=== PATIENT | female | born 1940 | race Hispanic/Latino ===

== ENCOUNTER 2016-07-10 20:16 | Emergency (ER) | payer OTHER, MEDICARE ==
[~2016-07-10] VITALS: Ht 160 cm; Wt 95.3 kg
[~2016-07-10 20:16] MED LIST: ADVAIR DISKUS 21 DSK PO; ALBUTEROL 3 ML3 ML INH; AMITIZA24 MCG PO; CLARITIN10 MG PO; COMBIVENT1 ARO INH; JANUVIA 100MG100 MG PO; LEVOTHYROXINE0.1 M1 PO; LINZESS145 MCG PO; METFORMIN HYD1000 M1 PO; METOPROLOL TART50 MG PO; MOBIC15 MG PO; NORVASC 5MG TAB5 MG PO; PANTOPRAZOLE SO40 MG PO; PRAVASTATIN SOD40 MG PO; PROVENTIL0.09 MG/A1 PO; SINGULAIR10 MG PO
--- NOTE | 2016-07-10 20:39 | ED AMS/SEIZURE/WEAK/DIZZY ---
History of Present Illness General Chief Complaint: General Adult Stated Complaint: PT STATES HAVING PAIN FROM WAIST DOWN, NO INJURY Source: patient, family Exam Limitations: no limitations Vital Signs & Intake/Output Vital Signs & Intake/Output Vital Signs Date Time Temp Pulse Resp B/P Pulse O2 O2 Flow FiO2 Ox Delivery Rate 07/10 2207 66 147/72 07/10 2207 67 149/67 07/10 2207 64 163/73 07/10 2111 98 Room Air 07/10 2028 99.3 74 20 174/99 97 Room Air Allergies Coded Allergies: Gadolinium-Containing Contrast Medi (UNKNOWN 11/09/15) Iodinated Contrast Media - Oral and (IODINATED CONTRAST MEDIA - IV DYE) (UNKNOWN 11/09/15) Penicillins (UNKNOWN 11/09/15) Sulfa (Sulfonamide Antibiotics) (UNKNOWN 11/09/15) fish derived (UNKNOWN 11/09/15) shellfish derived (UNKNOWN 11/09/15) Reconcile Medications Albuterol Sulfate (Proventil Hfa) 90 MCG HFA.AER.AD BREATHING PROBLEMS ( Reported) Albuterol Sulfate (Proventil) 2.5 MG/3 ML NEB 3 ML INH Q4P PRN SHORTNESS OF BREATH Amlodipine (Norvasc 5MG Tab) 5 MG TABLET 1 TAB PO DAILY HEART (Reported) Cyclobenzaprine HCl 10 MG TABLET 1 TAB PO 4 TIMES/DAY PRN MUSCLE SPASM FLUTICASONE/SALMETEROL (Advair 250-50 Diskus) 250 MCG-50 MCG/DOSE BLST.W.DEV BREATHING PROBLEMS (Reported) IPRATROPIUM/ALBUTEROL SULFATE (Combivent Inhaler) 14.7 GM AER.W.ADAP 2 PUF INH 4 TIMES/DAY ASTHMA Levothyroxine Sodium 0.1 MG TAB 0.1 MG PO DAILY AC THYROID (Reported) Linaclotide (Linzess) 145 MCG CAPSULE 1 TAB PO BID CONSTIPATION (Reported) Loratadine (Claritin) 10 MG TAB 1 TAB PO DAILY ALLERGIES (Reported) Lubiprostone (Amitiza) 24 MCG CAPSULE 1 CAP PO BID IBS (Reported) Meloxicam (Mobic) 15 MG TAB 1 TAB PO DAILY INFLAMMATION METFORMIN HCL (Metformin HCl ER) 1,000 MG TAB.ER.24 1 TAB PO DAILY DIABETES ( Reported) Metoprolol Tartrate 50 MG TABLET 1 TAB PO BID BP (Reported) Montelukast Sodium (Singulair) 10 MG TABLET 1 TAB PO DAILY ALLERGIES ( Reported) Pantoprazole Sodium 40 MG TABLET.DR 1 TAB PO DAILY GI (Reported) Polyethylene Glycol 3350 (Miralax) 17 GRAM/DOSE POWDER 17 GM PO BID CONSTIPATION mix with water, juice, soda, coffee or tea Pravastatin Sodium 40 MG TABLET 40 MG PO AT BEDTIME CHOLESTEROL (Reported) Sitagliptin Phosphate (Januvia) 100 MG TABLET 1 TAB PO DAILY DIABETES ( Reported) Triage Note: PT TO TRIAGE WITH C/O FEVER, EPIGASTRIC PAIN, NAUSEA, LOWER BACK PAIN RADIATING TO BILAT LOWER EXTREMITIES, WEAKNESS SINCE MONDAY. PT DENIES V/D, DENIES CHEST PAIN, DENIES SOB. VSS. PT AFEBRILE IN TRIAGE. PT TO [facility] FOR EKG BY WHEELCHAIR. Triage Nurses Notes Reviewed? yes Onset: Gradual Duration: day(s): Timing: recent history Injury Environment: home Severity: moderate Modifying Factors: Improves With: rest. Worsens With: movement. Associated Symptoms: lower back pain, bilaterally leg pain HPI: 75 yo woman h/o diabetes, hypertension, presents with lower back pain, radiating down both legs, abdominal pain, and occasional dizziness since monday evening. She confers no trauma, dysuria, diarrhea, nausea, vomiting. She notes no fever, chills, chest pain. Past History Travel History Traveled to [place] past 21 day No Medical History Any Pertinent Medical History? see below for history Cardiovascular: hypertension Respiratory: COPD Gastrointestinal: GERD Endocrine: diabetes, hypothyroidism Surgical History Surgical History: non-contributory Psychosocial History What is your primary language Arabic Tobacco Use: Never used Family History Hx Contributory? No Review of Systems Review of Systems Constitutional: Reports: no symptoms. EENTM: Reports: no symptoms. Respiratory: Reports: no symptoms. Cardiovascular: Reports: no symptoms. GI: Reports: no symptoms. Genitourinary: Reports: no symptoms. Musculoskeletal: Reports: no symptoms. Skin: Reports: no symptoms. Neurological/Psychological: Reports: no symptoms. Hematologic/Endocrine: Reports: no symptoms. Immunologic/Allergic: Reports: no symptoms. All Other Systems: Reviewed and Negative Physical Exam Physical Exam General Appearance: well developed/nourished, mild distress, moderate distress Head: atraumatic, normal appearance Eyes: Bilateral: normal appearance, PERRL, EOMI. Ears, Nose, Throat: normal pharynx Neck: normal inspection, supple, full range of motion Respiratory: normal breath sounds, chest non-tender, no respiratory distress, quiet respiration, lungs clear Cardiovascular: regular rate/rhythm Gastrointestinal: normal bowel sounds, soft, non-tender, no organomegaly Back: normal inspection, muscle spasm, no vertebral tenderness Extremities: normal range of motion Neurologic/Psych: no motor/sensory deficits, awake, alert, oriented x 3 Reflexes: 1+: bicep (R), bicep (L), knee (R), knee (L). Skin: intact, normal color, warm/dry Core Measures ACS in differential dx? No CVA/TIA Diagnosis: No Severe Sepsis Present: No Septic Shock Present: No Progress Differential Diagnosis: back pain vs skeletal issues vs abdominal issues. Plan of Care: Orders Procedure Date/time Status LIPASE 07/10 2039 Complete HEPATIC FUNCTION PANEL 07/10 2039 Complete CBC WITHOUT DIFFERENTIAL 07/10 2039 Complete BASIC METABOLIC PANEL 07/10 2039 Complete AMYLASE 07/10 2039 Complete EKG 07/10 2033 Active Laboratory Tests 07/10/162104: Anion Gap 14, Estimated GFR > 60, BUN/Creatinine Ratio 18.6, Glucose 117 H, Calcium 9.4, Total Bilirubin 0.6, Direct Bilirubin 0.5 H, AST 47 H, ALT 46, Alkaline Phosphatase 56, Total Protein 8.0, Albumin 4.4, Amylase 63, Lipase 148, CBC w Diff NO MAN DIFF REQ, RBC 4.74, MCV 89.5, MCH 29.6, RDW 14.1, MPV 8.4, Gran % 72.9, Lymphocytes % 19.0 L, Monocytes % 7.0, Eosinophils % 0.9, Basophils % 0.2, Absolute Granulocytes 6.9 H, Absolute Lymphocytes 1.8, Absolute Monocytes 0.7 H, Absolute Eosinophils 0.1, Absolute Basophils 0, PUBS MCHC 33.0 Diagnostic Imaging: Viewed by Me: Radiology Read, CT Scan. Discussed w/RAD: Radiology Read, CT Scan. Radiology Impression: abd/pelvic.... fecal impaction... no acute dz... full report below. , thoraco lumbar spine.... djd, no acute fx. CXR Impression: right atelectasis Initial ED EKG: normal axis, normal intervals, normal p-waves, normal QRS complex, normal sinus rhythm Comments: PATIENT: MARION VICTOR PRESENT AGE: 75 PATIENT ACCOUNT NO: [id number] : 40 LOCATION: [facility] ORDERING PHYSICIAN: LESLIE ARSHAD MD SERVICE DATE: 07/10/16 EXAM TYPE: RAD - XRY-THORACOLUMBAR SPINE EXAMINATION: XR THORACOLUMBAR SPINE CLINICAL INFORMATION: Pain COMPARISON: Chest radiograph 07/10/2016. Abdominal CT 07/10/2016. TECHNIQUE: Four views of the thoracolumbar spine FINDINGS: No evidence of acute fracture or subluxation. Vertebral body and posterior element alignment is normal. Vertebral body heights are maintained above the thoracic and lumbar spine. There is no significant disc space narrowing. Small multilevel endplate osteophyte formation, most prominent at the lower lumbar spine. The sacroiliac joints are intact. The sacrum appears intact. The bowel gas pattern is unremarkable. The visualized lungs are clear. IMPRESSION: Mild degenerative changes of the thoracolumbar spine. DICTATED BY: ARMANI CUI MD DATE/TIME DICTATED:07/10/162234 BENCH ASSEMBLER OPERATOR:GO DATE/TIME TRANSCRIBED:07/10/162234 CONFIDENTIAL, DO NOT COPY WITHOUT APPROPRIATE AUTHORIZATION. <Electronically signed in Other Vendor System> SIGNED BY: ARMANI CUI MD 07/10 PATIENT: MARION VICTOR PRESENT AGE: 75 PATIENT ACCOUNT NO: [id number] : 40 LOCATION: [facility] ORDERING PHYSICIAN: LESLIE ARSHAD MD SERVICE DATE: 07/10/16 EXAM TYPE: RAD - XRY-PORTABLE CHEST XRAY EXAMINATION: XR PORTABLE CHEST CLINICAL INFORMATION: Pain COMPARISON: 12/20/2013 TECHNIQUE: Portable supine radiograph. Lordotic positioning. FINDINGS: Aside from minor linear scarring or atelectasis at the medial right base the lungs are clear. No effusion or pneumothorax. No edema. Normal heart and mediastinum. IMPRESSION: Minor linear scarring or atelectasis at the medial right base. DICTATED BY: MARVEL WELDON MD DATE/TIME DICTATED:07/10/162222 BENCH ASSEMBLER OPERATOR:GO DATE/TIME TRANSCRIBED:07/10/162222 CONFIDENTIAL, DO NOT COPY WITHOUT APPROPRIATE AUTHORIZATION. <Electronically signed in Other Vendor System> SIGNED BY: MARVEL WELDON MD 07/10/162226 PATIENT: MARION VICTOR PRESENT AGE: 75 PATIENT ACCOUNT NO: [id number] : 40 LOCATION: [facility] ORDERING PHYSICIAN: LESLIE ARSHAD MD SERVICE DATE: 07/10/16 EXAM TYPE: CAT - CT ABD & PELVIS W/O IV CONTRAS EXAMINATION: CT ABDOMEN AND PELVIS WITHOUT CONTRAST CLINICAL INFORMATION: Abdominal pain. COMPARISON: 01/27/2014 abdominal ultrasound for right upper quadrant pain. TECHNIQUE: Multidetector volumetric imaging was performed from the superior aspect of the liver through the pubic symphysis. Sagittal and coronal reformatted images were obtained on the technologist's workstation. DLP: 1179.76 mGy-cm. FINDINGS: LUNG BASES: Dependent atelectasis noted. The heart is enlarged. LIVER, GALLBLADDER, AND BILIARY TREE: The liver is normal in size, shape, and attenuation. No focal hepatic lesion or biliary ductal dilatation is present. The patient is status post cholecystectomy. No bile duct dilation. PANCREAS: There is fatty replacement of the pancreas. No evidence of pancreatitis. SPLEEN: Unremarkable. ADRENAL GLANDS: Unremarkable. KIDNEYS AND URETERS: No renal calculi or mass. Mild symmetric fullness of both ureters to the level of the bladder likely due to bladder distention. There may be reflux. No perinephric collection or fat stranding. BLADDER: Distended. GASTROINTESTINAL TRACT: There is a small hiatal hernia. An ingested tablet is noted in the stomach. Normal small bowel caliber. Normal terminal ileum. The appendix is not seen and may be surgically absent. No pericecal inflammation. Correlate with surgical history. Normal caliber large bowel. No colitis. Minor rectal fecal impaction. No evidence for stercoral ulceration. No free air. No free fluid. ABDOMINAL WALL: Small fat-containing umbilical hernia. LYMPH NODES: Borderline enlarged periaortic lymph node at the level of the renal carmelita. VASCULAR: Minor atherosclerotic peripheral vascular disease. PELVIC VISCERA: Status post hysterectomy. Normal left ovary. Right ovary not clearly seen. Correlate with surgical history. No pelvic free fluid or lymphadenopathy. OSSEOUS STRUCTURES: There is a sclerotic bone island in the right femoral head. Diffuse demineralization may indicate osteoporosis. IMPRESSION: 1. No clear etiology for patient's abdominal pain. 2. There is a minor rectal fecal impaction but no CT evidence of stercoral ulceration. 3. The patient appears to be status post both hysterectomy and appendectomy. 4. The patient is status post cholecystectomy without bile duct dilation. 5. There is a small hiatal hernia. There is a small umbilical hernia. DICTATED BY: MARVEL WELDON MD DATE/TIME DICTATED:07/10/162210 BENCH ASSEMBLER OPERATOR:GO DATE/TIME TRANSCRIBED:07/10/162210 CONFIDENTIAL, DO NOT COPY WITHOUT APPROPRIATE AUTHORIZATION. <Electronically signed in Other Vendor System> SIGNED BY: MARVEL WELDON MD 07/10/162231 Departure Departure Disposition: HOME OR SELF CARE Condition: Stable Clinical Impression Primary Impression: Back pain Secondary Impressions: Abdominal pain, Constipation, Osteoarthritis Referrals: JACINTO MICHEL MD (PCP/Family) Departure Forms: Customer Survey General Discharge Information Prescriptions: Current Visit Scripts Cyclobenzaprine HCl 1 TAB PO 4 TIMES/DAY PRN MUSCLE SPASM #30 TAB Ref 1 Polyethylene Glycol 3350 (Miralax) 17 GM PO BID #255 GM Ref 1 mix with water, juice, soda, coffee or tea Comments 07/10/16, 23:40... discussed with patient and family at length... labs/ct scan benign... gave rx for flexeril and miralax... advocated close follow up.
[2016-07-10 21:20] LABS: ABSOLUTE BASOPHIL COUNT 0 /CUMM (0.0-0.2); ABSOLUTE EOSINOPHIL COUNT 0.1 /CUMM (0.0-0.7); ABSOLUTE GRANULOCYTE CT 6.9 /CUMM (1.4-6.5); ABSOLUTE LYMPH COUNT 1.8 /CUMM (1.2-3.4); ABSOLUTE MONOCYTE COUNT 0.7 /CUMM (0.10-0.60); BASOPHIL % 0.2 % (0.0-2.0); EOSINOPHIL % 0.9 % (0-5); GRANULOCYTE % 72.9 % (42.2-75.2); HEMATOCRIT 42.4 % (37-47); MEAN CORPUSCULAR HGB 29.6 PG (27.0-31.0); MEAN CORPUSCULAR VOLUME 89.5 FL (81.0-99.0); MEAN PLATELET VOLUME 8.4 FL (7.4-10.4); PLATELET COUNT 180 /CUMM (130-400); RBC DISTRIBUTION WIDTH 14.1 % (11.5-14.5); RED BLOOD CELL CT 4.74 /CUMM (4.20-5.40); WHITE BLOOD CELL COUNT 9.5 /CUMM (4.8-10.8)
--- NOTE | 2016-07-10 22:27 | RADIOLOGY REPORT ---
EXAMINATION: XR PORTABLE CHEST CLINICAL INFORMATION: Pain COMPARISON: 12/20/2013 TECHNIQUE: Portable supine radiograph. Lordotic positioning. FINDINGS: Aside from minor linear scarring or atelectasis at the medial right base the lungs are clear. No effusion or pneumothorax. No edema. Normal heart and mediastinum. IMPRESSION: Minor linear scarring or atelectasis at the medial right base.
--- NOTE | 2016-07-10 22:32 | CT SCAN REPORT ---
EXAMINATION: CT ABDOMEN AND PELVIS WITHOUT CONTRAST CLINICAL INFORMATION: Abdominal pain. COMPARISON: 01/27/2014 abdominal ultrasound for right upper quadrant pain. TECHNIQUE: Multidetector volumetric imaging was performed from the superior aspect of the liver through the pubic symphysis. Sagittal and coronal reformatted images were obtained on the technologist's workstation. DLP: 1179.76 mGy-cm. FINDINGS: LUNG BASES: Dependent atelectasis noted. The heart is enlarged. LIVER, GALLBLADDER, AND BILIARY TREE: The liver is normal in size, shape, and attenuation. No focal hepatic lesion or biliary ductal dilatation is present. The patient is status post cholecystectomy. No bile duct dilation. PANCREAS: There is fatty replacement of the pancreas. No evidence of pancreatitis. SPLEEN: Unremarkable. ADRENAL GLANDS: Unremarkable. KIDNEYS AND URETERS: No renal calculi or mass. Mild symmetric fullness of both ureters to the level of the bladder likely due to bladder distention. There may be reflux. No perinephric collection or fat stranding. BLADDER: Distended. GASTROINTESTINAL TRACT: There is a small hiatal hernia. An ingested tablet is noted in the stomach. Normal small bowel caliber. Normal terminal ileum. The appendix is not seen and may be surgically absent. No pericecal inflammation. Correlate with surgical history. Normal caliber large bowel. No colitis. Minor rectal fecal impaction. No evidence for stercoral ulceration. No free air. No free fluid. ABDOMINAL WALL: Small fat-containing umbilical hernia. LYMPH NODES: Borderline enlarged periaortic lymph node at the level of the renal carmelita. VASCULAR: Minor atherosclerotic peripheral vascular disease. PELVIC VISCERA: Status post hysterectomy. Normal left ovary. Right ovary not clearly seen. Correlate with surgical history. No pelvic free fluid or lymphadenopathy. OSSEOUS STRUCTURES: There is a sclerotic bone island in the right femoral head. Diffuse demineralization may indicate osteoporosis. IMPRESSION: 1. No clear etiology for patient's abdominal pain. 2. There is a minor rectal fecal impaction but no CT evidence of stercoral ulceration. 3. The patient appears to be status post both hysterectomy and appendectomy. 4. The patient is status post cholecystectomy without bile duct dilation. 5. There is a small hiatal hernia. There is a small umbilical hernia.
--- NOTE | 2016-07-10 22:41 | RADIOLOGY REPORT ---
EXAMINATION: XR THORACOLUMBAR SPINE CLINICAL INFORMATION: Pain COMPARISON: Chest radiograph 07/10/2016. Abdominal CT 07/10/2016. TECHNIQUE: Four views of the thoracolumbar spine FINDINGS: No evidence of acute fracture or subluxation. Vertebral body and posterior element alignment is normal. Vertebral body heights are maintained above the thoracic and lumbar spine. There is no significant disc space narrowing. Small multilevel endplate osteophyte formation, most prominent at the lower lumbar spine. The sacroiliac joints are intact. The sacrum appears intact. The bowel gas pattern is unremarkable. The visualized lungs are clear. IMPRESSION: Mild degenerative changes of the thoracolumbar spine.
[2016-07-10] MEDS ORDERED: MIRALAX119 GM PO (23:33)
[2016-07-10] MEDS ORDERED: CYCLOBENZAPRINE10 M1 PO (23:33)
[2016-07-10 23:46] VITALS: BP 131/77
== END 2016-07-10 23:47 ==
LOC: ERH 20:16
PROVIDERS: Pediatrics
DX: K59.00 Constipation, unspecified (principal); M19.90 Unspecified osteoarthritis, unspecified site; R10.13 Epigastric pain; M54.5 Low back pain
CPT/HCPCS: 72080; 74176; 93005; 93010; 96374; 96375; J0131; J1885

== ENCOUNTER 2018-01-01 09:48 | Emergency (ER) | payer MEDICARE, OTHER ==
[~2018-01-01] VITALS: Ht 157.5 cm; Wt 90.7 kg
[~2018-01-01 09:48] MED LIST changes: +ADVAIR 500-501 EACH INH; -ADVAIR DISKUS 21 DSK PO; +CLARITIN10 M1 PO; -CLARITIN10 MG PO; +CYCLOBENZAPRINE10 M1 PO; -LEVOTHYROXINE0.1 M1 PO; +LEVOTHYROXINE88 MCG PO; +METFORMIN HCL1000 M1 PO; -METFORMIN HYD1000 M1 PO; +METOPROLOL TART50 M1 PO; -METOPROLOL TART50 MG PO; +MIRALAX119 GM PO; +PROVENTIL HFA6.7 GM INH; -PROVENTIL0.09 MG/A1 PO
[2018-01-01] MEDS ORDERED: CRESTOR5 M1 PO (10:44)
[2018-01-01] MEDS ORDERED: SYMBICORT 16010.2 GM INH (10:47)
[2018-01-01] MEDS ORDERED: ALBUTEROL2.5 MG/3 M INH/SOL (10:48)
[2018-01-01 10:49] LABS: ABSOLUTE BASOPHIL COUNT 0 /CUMM (0.0-0.2); ABSOLUTE EOSINOPHIL COUNT 0.1 /CUMM (0.0-0.7); ABSOLUTE GRANULOCYTE CT 4.5 /CUMM (1.4-6.5); ABSOLUTE LYMPH COUNT 1.6 /CUMM (1.2-3.4); ABSOLUTE MONOCYTE COUNT 0.5 /CUMM (0.10-0.60); BASOPHIL % 0.3 % (0.0-2.0); EOSINOPHIL % 1.1 % (0-5); GRANULOCYTE % 67.6 % (42.2-75.2); HEMATOCRIT 40.2 % (37-47); MEAN CORPUSCULAR HGB 29.9 PG (27.0-31.0); MEAN CORPUSCULAR HGB CONC 33.9 G/DL (33.0-37.0); MEAN CORPUSCULAR VOLUME 88.2 FL (81.0-99.0); MEAN PLATELET VOLUME 8.4 FL (7.4-10.4); PLATELET COUNT 214 /CUMM (130-400); RBC DISTRIBUTION WIDTH 14.2 % (11.5-14.5); RED BLOOD CELL CT 4.57 /CUMM (4.20-5.40); WHITE BLOOD CELL COUNT 6.6 /CUMM (4.8-10.8)
[2018-01-01] MEDS ORDERED: OMEPRAZOLE20 M2 PO (10:50)
[2018-01-01] MEDS ORDERED: TRADJENTA5 M1 PO (10:50)
[2018-01-01] MEDS ORDERED: GLIPIZIDE5 M2 PO (10:50)
--- NOTE | 2018-01-01 10:50 | ED DYSPNEA/ASTHMA COMPLAINT ---
History of Present Illness General Chief Complaint: Dyspnea (COPD, CHF, Other) Stated Complaint: SOB, CP THAT RADIATES TO BACK, HX ASTHMA Source: patient, family, old records Exam Limitations: no limitations Vital Signs & Intake/Output Vital Signs & Intake/Output Vital Signs Date Time Temp Pulse Resp B/P B/P Pulse O2 O2 Flow FiO2 Mean Ox Delivery Rate 01/01 1123 98 Room Air 01/01 1007 98.0 65 20 146/87 97 Room Air Allergies Coded Allergies: Gadolinium-Containing Contrast Medi (UNKNOWN 11/09/15) Iodinated Contrast- Oral and IV Dye (IODINATED CONTRAST MEDIA - IV DYE) (UNKNOWN 11/09/15) Penicillins (UNKNOWN 11/09/15) Sulfa (Sulfonamide Antibiotics) (UNKNOWN 11/09/15) fish derived (UNKNOWN 11/09/15) shellfish derived (UNKNOWN 11/09/15) Reconcile Medications Albuterol Sulfate (Proventil Hfa) 90 MCG HFA.AER.AD 2 PUF INH 4 TIMES/DAY PRN SHORTNESS OF BREATH (Reported) Albuterol Sulfate 2.5 MG/3 ML (0.083 %) VIAL.NEB 1 Vial INH/UZMA Q4P PRN SHORTNESS OF BREATH (Reported) Anastrozole 1 MG TABLET 1 TAB PO DAILY CANCER (Reported) Budesonide/Formoterol Fumarate (Symbicort 160-4.5 Mcg Inhaler) 160 MCG-4.5 MCG/ ACTUATION HFA.AER.AD 2 PUF INH BID BREATHING PROBLEMS (Reported) Fluticasone/Salmeterol (Advair 500-50 Diskus) 500 MCG-50 MCG/DOSE BLST.W.DEV 1 PUF INH BID BREATHING PROBLEMS (Reported) Glipizide 5 MG TABLET 1 TAB PO DAILY DIABETES (Reported) Levothyroxine Sodium 88 MCG TABLET 1 TAB PO DAILY AC THYROID (Reported) Linagliptin (Tradjenta) 5 MG TABLET 1 TAB PO DAILY DIABETES (Reported) Loratadine (Claritin) 10 MG TABLET 1 TAB PO DAILY ALLERGIES (Reported) Metformin HCl 1,000 MG TABLET 1 TAB PO BID DIABETES (Reported) Metoprolol Tartrate 50 MG TABLET 1 TAB PO BID HEART (Reported) Omeprazole 20 MG CAPSULE.DR 1 CAP PO DAILY GI (Reported) Polyethylene Glycol 3350 (Miralax) 17 GRAM/DOSE POWDER 17 GM PO BID CONSTIPATION mix with water, juice, soda, coffee or tea Rosuvastatin Calcium (Crestor) 5 MG TABLET 1 TAB PO DAILY cholesterol ( Reported) Triage Note: PT TO ED WITH FRIEND FOR C/O CHEST PAIN, BACK PAIN AND SOB X 1 WEEK. H/O ASTHMA. HAS BEEN USING INHALER WITH NO RELIEF. EKG DONE. RA SATS 97%. Triage Nurses Notes Reviewed? yes Onset: 4 days Duration: day(s):, constant, continues in ED, getting worse Timing: recent history Severity: moderate, severe Activities at Onset: rest Prior Episodes/Possible Cause: frequent episodes Modifying Factors: Improves With: rest. Worsens With: movement. Associated Symptoms: cough, wheezing, weakness LMP (ages 10-50): post menopausal : No Patient currently breastfeeds: No HPI: 4 days prior to admission patient complains of productive cough increasing wheezing and generalized weakness due to shortness of breath with exertion. She denies fever chills nausea vomiting diarrhea abdominal pain chest pain headache dysuria rash bleeding. Past History Travel History Traveled to [place] past 21 day No Medical History Any Pertinent Medical History? see below for history Cardiovascular: hypertension Respiratory: asthma, COPD Gastrointestinal: GERD Endocrine: diabetes, hypothyroidism Surgical History Surgical History: non-contributory Psychosocial History What is your primary language Greenlandic Tobacco Use: Never used ETOH Use: denies use Illicit Drug Use: denies illicit drug use Family History Hx Contributory? No Review of Systems Review of Systems Constitutional: Reports: see HPI, weakness. EENTM: Reports: no symptoms. Respiratory: Reports: see HPI, cough, short of breath, sputum production, wheezing. Cardiovascular: Reports: no symptoms. GI: Reports: no symptoms. Genitourinary: Reports: no symptoms. Musculoskeletal: Reports: no symptoms. Skin: Reports: no symptoms. Neurological/Psychological: Reports: no symptoms. Hematologic/Endocrine: Reports: no symptoms. Immunologic/Allergic: Reports: no symptoms. All Other Systems: Reviewed and Negative Physical Exam Physical Exam General Appearance: well developed/nourished, alert, awake, anxious, moderate distress, obese Head: atraumatic, normal appearance Eyes: Bilateral: normal appearance, PERRL, EOMI. Ears, Nose, Throat: normal pharynx, normal ENT inspection, hearing grossly normal, moist mucus membranes Neck: normal inspection, supple, full range of motion, no midline tenderness Respiratory: chest non-tender, decreased breath sounds, accessory muscle use, wheezing, respiratory distress Cardiovascular: regular rate/rhythm, normal peripheral pulses, norml femoral pulses equa Peripheral Pulses: 4+ carotid (R), 4+ carotid (L) Gastrointestinal: normal bowel sounds, soft, non-tender Extremities: normal inspection, normal capillary refill, normal range of motion, no edema Neurologic/Psych: no motor/sensory deficits, awake, alert, oriented x 3, normal gait, normal mood/affect, 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 No CVA/TIA Diagnosis No Sepsis Present: No Sepsis Focused Exam Completed? No Progress Differential Diagnosis: bronchitis, CHF, COPD, pneumonia Plan of Care: Orders Procedure Date/time Status TROPONIN LEVEL 01/01 1008 Complete COMPREHENSIVE METABOLIC PANEL 01/01 1008 Complete CBC WITHOUT DIFFERENTIAL 01/01 1008 Complete EKG 01/01 0950 Active Laboratory Tests 01/01/18 1034: Anion Gap 12, Estimated GFR > 60, BUN/Creatinine Ratio 20.0, Glucose 132 H, Calcium 9.4, Total Bilirubin 0.4, AST 45 H, ALT 52, Alkaline Phosphatase 59, Troponin I < 0.01, Total Protein 7.2, Albumin 4.1, Globulin 3.1, Albumin/ Globulin Ratio 1.3, CBC w Diff NO MAN DIFF REQ, RBC 4.57, MCV 88.2, MCH 29.9, MCHC 33.9, RDW 14.2, MPV 8.4, Gran % 67.6, Lymphocytes % 23.8, Monocytes % 7.2, Eosinophils % 1.1, Basophils % 0.3, Absolute Granulocytes 4.5, Absolute Lymphocytes 1.6, Absolute Monocytes 0.5, Absolute Eosinophils 0.1, Absolute Basophils 0 Diagnostic Imaging: Viewed by Me: Radiology Read. Discussed w/RAD: Radiology Read. CXR Impression: no acute abnormality, no infiltrates, normal size heart, normal mediastinum Initial ED EKG: normal axis, normal intervals, normal p-waves, normal QRS complex, normal sinus rhythm, no ST T wave changes Rhythm Strip: normal sinus rhythm Departure Departure Time of Disposition: 1219 Disposition: HOME OR SELF CARE Condition: Stable Clinical Impression Primary Impression: Asthma with exacerbation Secondary Impressions: Bronchitis Referrals: Regina Hoang MD (PCP/Family) Departure Forms: Customer Survey General Discharge Information Prescriptions: Current Visit Scripts Prednisone 1 TAB PO BID #10 TAB Albuterol Sulfate (Proair Hfa) 2 PUF INH Q4-6 PRN PRN asthma #1 INHAL Ref 5 Azithromycin (Zithromax) 1 TAB PO DAILY #4 TAB Critical Care Note Critical Care Note Critical Care Time: non-applicable
[2018-01-01] MEDS ORDERED: ANASTROZOLE1 M1 PO (10:51)
--- NOTE | 2018-01-01 11:04 | RADIOLOGY REPORT ---
EXAMINATION: XR CHEST CLINICAL INFORMATION: Chest pain and shortness of breath. COMPARISON: 06/06/2017 TECHNIQUE: 2 views of the chest were obtained. FINDINGS: The lungs are well-inflated and clear. Trachea is midline in position. No evidence of interstitial disease, focal consolidation, mass, pneumothorax or pleural effusion. The cardiac silhouette is borderline enlarged, unchanged. The pulmonary carmelita have normal size and contour. The visualized bones are intact. The examined upper abdomen is unremarkable. IMPRESSION: No acute cardiopulmonary findings compared to 06/06/2017.
[2018-01-01] MEDS ORDERED: PREDNISONE20 M1 PO (12:20)
[2018-01-01] MEDS ORDERED: PROAIR HFA8.5 GM INH (12:20)
[2018-01-01] MEDS ORDERED: ZITHROMAX250 M2 PO (12:20)
[2018-01-01 12:30] VITALS: BP 152/90
== END 2018-01-01 12:31 ==
LOC: ERH 09:48
PROVIDERS: Physician Assistant
DX: J45.901 Unspecified asthma with (acute) exacerbation (principal)
CPT/HCPCS: 1263; 71046; 93005; 93010